=== PATIENT | male | born 1970 | race Caucasian/White ===

== ENCOUNTER 2017-07-17 16:41 | Emergency (ER) | payer BC ==
[2017-07-17] MEDS ORDERED: TETANUS & DIPHTHERIA TOX,ADULT 0.5 ML VIAL ONE (20:20)
--- NOTE | 2017-07-17 21:08 | EDPHYS ---
Physician Documentation [facility] Name: Michael Rahman Age: 47 yrs Sex: Male : 1970 Arrival Date: 07/17/2017 Time: 16:46 Bed Treatment Private MD: ED Physician David Linton HPI: 07/17 21:05 This 47 yrs old Male presents to ER via Ambulatory with complaints of Finger pm1 laceration. 21:05 The patient has a laceration occurred at home. The laceration(s) is(are) located on the pm1 dorsal aspect of middle phalanx of right middle finger. Onset: The symptoms/episode began/occurred just prior to arrival. Associated signs and symptoms: Pertinent negatives: deformity, numbness distal to injury, suspected foreign body. Patient was using a drill and it spun while he was holding it. When the drill spun it cut his right hand against a sharp piece of metal. Historical: - Allergies: 16:55 No Known Allergies; aj - Home Meds: 16:55 Lisinopril Oral [Active]; Pristiq oral oral [Active]; Hydrocodone-Acetaminophen Oral aj [Active]; - PMHx: 16:55 Hypertension; Arthritis; aj - PSHx: 16:55 Knee surgery; aj - Immunization history:: Adult Immunizations up to date. - Social history:: Smoking status: Patient/guardian denies using tobacco. - Ebola Screening: : No symptoms or risks identified at this time. ROS: 21:05 Constitutional: Negative for fever, chills, and weight loss, Eyes: Negative for injury, pm1 pain, redness, and discharge, ENT: Negative for injury, pain, and discharge, Neck: Negative for injury, pain, and swelling, Cardiovascular: Negative for chest pain, palpitations, and edema, Respiratory: Negative for shortness of breath, cough, wheezing, and pleuritic chest pain, Abdomen/GI: Negative for abdominal pain, nausea, vomiting, diarrhea, and constipation, Back: Negative for injury and pain. 21:05 Neuro: Negative for headache, weakness, numbness, tingling, and seizure. 21:05 MS/extremity: Positive for laceration, of the dorsal aspect of middle phalanx of right middle finger. 21:05 Skin: Positive for laceration(s). Exam: 21:05 Constitutional: This is a well developed, well nourished patient who is awake, alert, pm1 and in no acute distress. Head/Face: Normocephalic, atraumatic. Chest/axilla: Normal chest wall appearance and motion. Nontender with no deformity. No lesions are appreciated. Cardiovascular: Regular rate and rhythm with a normal S1 and S2. No gallops, murmurs, or rubs. Normal PMI, no JVD. No pulse deficits. Respiratory: Lungs have equal breath sounds bilaterally, clear to auscultation and percussion. No rales, rhonchi or wheezes noted. No increased work of breathing, no retractions or nasal flaring. Abdomen/GI: Soft, non-tender, with normal bowel sounds. No distension or tympany. No guarding or rebound. No evidence of tenderness throughout. Back: No spinal tenderness. No costovertebral tenderness. Full range of motion. 21:05 Musculoskeletal/extremity: Extremities: grossly normal except: noted in the dorsal aspect of middle phalanx of right middle finger: laceration, There is no evidence of decreased ROM, deformity, ROM: full active range of motion, in the right middle finger, the right middle finger Sensation intact. 21:05 Skin: injury, laceration(s), the wound is approximately 2 cm(s), with a depth of 0.5 cm(s), of the dorsal aspect of middle phalanx of right middle finger. 21:05 Neuro: Orientation: is normal, Motor: moves all fours, Sensation: is normal, no obvious gross deficits, Gait: is steady, at a normal pace, without difficulty. Vital Signs: 16:55 BP 129 / 81; Pulse 91; Resp 16; Temp 97.5; Pulse Ox 96% on R/A; Weight 92.99 kg; Height aj 5 ft. 11 in. (180.34 cm) (R); 19:30 BP 115 / 70; Pulse 84; Resp 15; Pulse Ox 100% on R/A; Pain 2/10; mt 21:49 BP 119 / 77; Pulse 84; Resp 16; Pulse Ox 96% on R/A; mt 16:55 Body Mass Index 28.59 (92.99 kg, 180.34 cm) aj Laceration: 21:05 Wound Repair of 2cm ( 0.8in ) subcutaneous laceration to dorsal aspect of middle pm1 phalanx of right middle finger. Linear shaped.. Distal neuro/vascular/tendon intact. Anesthesia: Digital block administered with 2 mls of 1% lidocaine. Wound prep: Extensive cleansing by me, Wound irrigation by me, Wound explored extensively, Copious irrigation. Skin closed with 9 5-0 Prolene using simple sutures and sterile technique. Dressed with Neosporin, 4x4's, finger splint. Patient tolerated well. MDM: 19:33 Patient medically screened. pm1 21:06 Data reviewed: vital signs. Data interpreted: Pulse oximetry: on room air is 100 %. pm1 Interpretation: normal. Counseling: I had a detailed discussion with the patient and/or guardian regarding: the historical points, exam findings, and any diagnostic results supporting the discharge/admit diagnosis, the need for outpatient follow up, to return to the emergency department if symptoms worsen or persist or if there are any questions or concerns that arise at home. 07/17 20:11 Order name: Prolene, Sutures; Complete Time: 20:18 pm1 07/17 20:11 Order name: Dressing - Wound; Complete Time: 20:18 pm1 07/17 20:11 Order name: Gloves, Sterile; Complete Time: 20:18 pm1 07/17 20:11 Order name: Setup Suture Tray; Complete Time: 20:18 pm1 07/17 21:15 Order name: Finger Splint; Complete Time: 21:43 pm1 Administered Medications: 20:25 Drug: Tetanus-Diphtheria Toxoid Adult 0.5 ml {System Analyst: [employer]. Exp: bb 10/24/2019. Lot #: [id number]. } Route: IM; Site: left deltoid; 21:43 Follow up: Response: No adverse reaction bb 20:35 Drug: Lidocaine (1 %) 5 ml {Note: adminstered by Latrell Portillo NP to affected area.} bb Volume: 5 ml; Route: Infiltration; Disposition: 07/18 04:05 Co-signature as Attending Physician, David Linton MD. Disposition: 07/17/17 21:07 Discharged to Home. Impression: Laceration without foreign body of right middle finger without damage to nail. - Condition is Stable. - Discharge Instructions: Laceration Care, Adult. - Prescriptions for Keflex 500 mg Oral Capsule - take 1 capsule by ORAL route every 12 hours for 10 days; 20 capsule. - Medication Reconciliation Form, Thank You Letter, Antibiotic Education form. - Follow up: Emergency Department; When: As needed; Reason: Worsening of condition. Follow up: Private Physician; When: 7 - 10 days; Reason: Recheck today's complaints, Continuance of care, Staple/Suture removal, Re-evaluation by your physician. Follow up: Rigo Mcfarlane MD; When: 7 - 10 days; Reason: Wound Recheck, Recheck today's complaints, Continuance of care, Staple/Suture removal, Re-evaluation by your physician. - Problem is new. - Symptoms have improved. Signatures: Mari Duckworth RN RN aj Richa Cerrato RN RN bb Jose D Francis, KALYANI DAIRY NUTRITION CONSULTANT pm1 David Linton MD MD gs Corrections: (The following items were deleted from the chart) 07/17 21:08 21:07 07/17/2017 21:07 Discharged to Home. Impression: Laceration without foreign body pm1 of right middle finger without damage to nail. Condition is Stable. Forms are Medication Reconciliation Form, Thank You Letter, Antibiotic Education, Prescription Opioid Use. Follow up: Emergency Department; When: As needed; Reason: Worsening of condition. Follow up: Private Physician; When: 7 - 10 days; Reason: Recheck today's complaints, Continuance of care, Staple/Suture removal, Re-evaluation by your physician. Problem is new. Symptoms have improved. pm1 22:25 21:08 07/17/2017 21:07 Discharged to Home. Impression: Laceration without foreign body bb of right middle finger without damage to nail. Condition is Stable. Discharge Instructions: Laceration Care, Adult. Prescriptions for Keflex 500 mg Oral Capsule - take 1 capsule by ORAL route every 12 hours for 10 days; 20 capsule. and Forms are Medication Reconciliation Form, Thank You Letter, Antibiotic Education. Follow up: Emergency Department; When: As needed; Reason: Worsening of condition. Follow up: Private Physician; When: 7 - 10 days; Reason: Recheck today's complaints, Continuance of care, Staple/Suture removal, Re-evaluation by your physician. Follow up: Rigo Mcfarlane; When: 7 - 10 days; Reason: Wound Recheck, Recheck today's complaints, Continuance of care, Staple/Suture removal, Re-evaluation by your physician. Problem is new. Symptoms have improved. pm1
--- NOTE | 2017-07-17 21:08 | ER ---
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 aj Transition of care: patient was not received from another setting of care. Onset of symptoms was July 17, 2017. Care prior to arrival: None. 16:54 Method Of Arrival: Ambulatory aj 16:54 Acuity: GENOVEVA 4 aj 20:00 Risk Assessment: Do you want to hurt yourself or someone else? Patient reports no bb desire to harm self or others. Initial Sepsis Screen: Does the patient meet any 2 criteria? No. Patient's initial sepsis screen is negative. Does the patient have a suspected source of infection? No. Patient's initial sepsis screen is negative. Triage Assessment: 16:55 General: Appears in no apparent distress. comfortable, Behavior is calm, cooperative, aj appropriate for age. Pain:. Neuro: Level of Consciousness is awake, alert, obeys commands, Oriented to person, place, time, situation, Appropriate for age. Respiratory: Airway is patent Respiratory effort is even, unlabored, Respiratory pattern is regular, symmetrical. Derm: Skin is intact, is healthy with good turgor, Skin is pink, warm \T\ dry. normal. Injury Description: Laceration sustained to dorsal aspect of middle phalanx of right middle finger is 0.5 to 2.5 cm long, was sustained 30-60 minutes ago. Historical: - Allergies: 16:55 No Known Allergies; aj - Home Meds: 16:55 Lisinopril Oral [Active]; Pristiq oral oral [Active]; Hydrocodone-Acetaminophen Oral aj [Active]; - PMHx: 16:55 Hypertension; Arthritis; aj - PSHx: 16:55 Knee surgery; aj - Immunization history:: Adult Immunizations up to date. - Social history:: Smoking status: Patient/guardian denies using tobacco. - Ebola Screening: : No symptoms or risks identified at this time. Screenin:00 Abuse screen: Denies threats or abuse. Nutritional screening: No deficits noted. bb Tuberculosis screening: No symptoms or risk factors identified. Fall Risk None identified. Assessment: 19:09 Reassessment: see triage. aj 20:00 Reassessment: Patient and/or family updated on plan of care and expected duration. Pain bb level reassessed. Patient is alert, oriented x 3, equal unlabored respirations, skin warm/dry/pink. small laceration to right hand not bleeding cleaned with soap and water covered with moist dressing. 22:22 Reassessment: sutures intact to right hand, finger splint in place pt verbalized bb understanding of and agrees to plan of care discharge instructions given pt ambulated with steady gait to exit accompanied by spouse. Vital Signs: 16:55 BP 129 / 81; Pulse 91; Resp 16; Temp 97.5; Pulse Ox 96% on R/A; Weight 92.99 kg; Height aj 5 ft. 11 in. (180.34 cm) (R); 19:30 BP 115 / 70; Pulse 84; Resp 15; Pulse Ox 100% on R/A; Pain 2/10; mt 21:49 BP 119 / 77; Pulse 84; Resp 16; Pulse Ox 96% on R/A; mt 16:55 Body Mass Index 28.59 (92.99 kg, 180.34 cm) aj ED Course: 16:46 Patient arrived in ED. mr 16:54 Triage completed. aj 16:55 Arm band placed on left wrist. Patient placed in waiting room, Patient notified of wait aj time. 19:33 Jose D Francis, RECREATION MANAGER is PHCP. pm1 19:33 David Linton MD is Attending Physician. pm1 20:00 Patient has correct armband on for positive identification. Call light in reach. Adult bb w/ patient. 20:18 Richa Cerrato, MARICRUZ is Primary Nurse. bb 21:08 Rigo Mcfarlane MD is Referral Physician. pm1 21:30 Assist provider with laceration repair on right hand using sutures. Set up tray. bb Performed by Jose D Francis RECREATION MANAGER Dressed with 4X4s, Patient tolerated well. Patient did not have IV access during this emergency room visit. Administered Medications: 20:25 Drug: Tetanus-Diphtheria Toxoid Adult 0.5 ml {Textile Screen Printer: [employer]. Exp: bb 10/24/2019. Lot #: [id number]. } Route: IM; Site: left deltoid; 21:43 Follow up: Response: No adverse reaction bb 20:35 Drug: Lidocaine (1 %) 5 ml {Note: adminstered by Latrell Portillo NP to affected area.} bb Volume: 5 ml; Route: Infiltration; Outcome: 21:07 Discharge ordered by . pm1 22:24 Discharged to home ambulatory, with family. bb 22:24 Condition: good 22:24 Discharge instructions given to patient, Instructed on discharge instructions, follow up and referral plans. medication usage, wound care, Demonstrated understanding of instructions, follow-up care, medications, wound care, Prescriptions given X 1. 22:25 Patient left the ED. bb Signatures: Mari Duckworth RN RN aj Rivera, Maria mr Ballard, Brenda, RN RN bb Jose D Francis NP RECREATION MANAGER pm1 Elba Quinones mt Corrections: (The following items were deleted from the chart) 19:32 19:30 BP 115 / 70; Pulse 84bpm; Resp 15bpm; Pulse Ox 100% RA; mt mt
[2017-07-17 22:40] VITALS: TEMP 97.5
[2017-07-17 22:42] VITALS: BP 119/77; O2SAT 96
== END 2017-07-17 22:25 | disposition home or self-care (01) ==
LOC: ER 16:41
PROC: 0JQJ0ZZ Repair Right Hand Subcutaneous Tissue and Fascia, Open Approach (ICD-10-PCS; principal; 2017-07-17)
DX: S61.212A Laceration without foreign body of right middle finger without damage to nail, initial encounter (principal); W29.8XXA Contact with other powered hand tools and household machinery, initial encounter; Y93.9 Activity, unspecified; Y92.9 Unspecified place or not applicable
CPT/HCPCS: 90714; 99283

== ENCOUNTER 2020-11-08 21:00 | Emergency (ER) | payer BC ==
[2020-11-08] MEDS ORDERED: BUPIVACAINE 0.5% PF 10 ML VIAL ONE (22:54)
[2020-11-08] MEDS ORDERED: LIDOCAINE 2% W/EPI 1:200,000 MPF 20 ML VIAL IM ONE (22:54)
[2020-11-08] MEDS ORDERED: FENTANYL CITR 100 MCG/2 ML ONE (23:14)
[2020-11-08] MEDS ORDERED: NA CHLORIDE 0.9% 500 ML ONE (23:14)
[2020-11-08] MEDS ORDERED: CLINDAMYCIN 900MG/D5W 900 MG/50 ML IVPB IV ONE (23:15)
[2020-11-08 23:32] LABS: Absolute Lymphocytes (CBC) 2.8 K/uL (0.7-4.9); Basophils % 0.7 % (0-1.3); Hematocrit 44.8 % (39.6-49.0); Lymphocytes % 24.5 % (15.3-44.8); MPV 8.9 fL (7.6-11.3)
[2020-11-08 23:47] LABS: Potassium 4.1 mmol/L (3.5-5.1)
--- NOTE | 2020-11-09 00:10 | EDPHYS ---
Physician Documentation [facility] Name: Michael Rahman Age: 50 yrs Sex: Male : 1970 Arrival Date: 11/08/2020 Time: 21:04 Bed 15 Private MD: ED Physician Bello Urias HPI: 11/08 22:35 This 50 yrs old Male presents to ER via Ambulatory with complaints of Abscess.cp 22:35 The patient presents with an abscess of the axilla of left arm. Description: cp erythematous, swollen. Onset: The symptoms/episode began/occurred last week. The patient has been recently seen at an urgent care, this week, for similar complaints, was given a prescription for antibiotics, currently taking Bactrim. Patient reports seen Friday at Urgent Care for abscess to axilla of left arm. Reports increasing pain and swelling to area. Historical: - Allergies: 21:47 No Known Allergies; wg - Home Meds: 21:47 Bactrim DS Oral [Active]; lisinopril Oral [Active]; Hydrocodone-Acetaminophen Oral wg [Active]; Pristiq Oral [Active]; Adderall XR Oral [Active]; - PMHx: 21:47 Hypertension; Arthritis; wg - Immunization history:: Adult Immunizations up to date. - Social history:: Smoking status: Patient denies any tobacco usage or history of. Patient uses alcohol, but reports only rare drinking. Patient/guardian denies using street drugs, IV drugs. ROS: 22:45 Skin: Positive for abscess, of the axilla of left arm. cp 22:45 Constitutional: Negative for body aches, chills, fever, poor PO intake. cp 22:45 Cardiovascular: Negative for chest pain. 22:45 Respiratory: Negative for cough, shortness of breath, wheezing. 22:45 All other systems are negative. Exam: 22:50 Constitutional: The patient appears in no acute distress, alert, awake, cp non-diaphoretic, non-toxic, well developed, well nourished. 22:50 Head/Face: Normocephalic, atraumatic. cp 22:50 Chest/axilla: Axilla: abscess, that is small, of the left axilla, with surrounding erythema, mild, tender fluctuant areas, lymphadenopathy, that is small, in the left axilla, with tenderness. 22:50 Cardiovascular: Rate: normal, Rhythm: regular. 22:50 Respiratory: the patient does not display signs of respiratory distress, Respirations: normal, no use of accessory muscles, no retractions. 22:50 Musculoskeletal/extremity: no streaking redness, no swelling extending from left arm axilla. 22:50 Neuro: Orientation: to person, place \T\ time. Mentation: is normal. Vital Signs: 21:41 BP 123 / 81; Pulse 80; Resp 18; Temp 98.5; Pulse Ox 99% on R/A; Weight 90.72 kg; Height wg 5 ft. 11 in. (180.34 cm); Pain 8/10; 22:43 BP 125 / 78; Pulse 78; Resp 18; Pulse Ox 99% on R/A; df1 11/09 00:06 BP 130 / 75; Pulse 77; Resp 18; Pulse Ox 100% on R/A; df1 11/08 21:41 Body Mass Index 27.89 (90.72 kg, 180.34 cm) Procedures: 00:05 I \T\ D: Incision and drainage was performed for an abscess of the left arm axilla cp Prepped with Betadine, Anesthetized with 8 ccs of 50/50 mixture 1% lidocaine with epi and 0.5% marcaine. Incised with #11 blade. Drained small amount purulent fluid. bloody fluid. Packed with iodoform gauze, Dressing: sterile 4x4 gauze, the patient tolerated the procedure well. MDM: 11/08 21:53 Patient medically screened. [facility] 23:00 Differential diagnosis: abscess, cellulitis, sepsis, lymphadenopathy. 11/09 00:09 Data reviewed: vital signs, nurses notes. 00:09 Counseling: I had a detailed discussion with the patient and/or guardian regarding: the historical points, exam findings, and any diagnostic results supporting the discharge/admit diagnosis, lab results, to return to the emergency department if symptoms worsen or persist or if there are any questions or concerns that arise at home. Response to treatment: the patient's symptoms have mildly improved after treatment, and as a result, I will discharge patient. ED course: VSS. Patient appears non-toxic and no acute distress. IV clindamycin given. Will discharge to home for continued monitoring. Patient instructed to continue oral Bactrim and start oral clindamycin. 11/08 22:30 Order name: CBC with Diff cp 11/08 22:30 Order name: BMP cp 11/08 22:30 Order name: CBC with Automated Diff EDMS 11/08 22:30 Order name: Basic Metabolic Panel EDMS 11/08 22:30 Order name: IV; Complete Time: 23:21 cp 11/08 22:30 Order name: I\T\D Setup; Complete Time: 22:46 cp Administered Medications: 11/08 23:20 Drug: fentaNYL (PF) 25 mcg Route: IVP; Site: right antecubital; df1 11/09 00:21 Follow up: Response: No adverse reaction; Pain is decreased df1 11/08 23:20 Drug: NS 0.9% 500 ml Route: IV; Rate: bolus; Site: right antecubital; df1 11/09 00:21 Follow up: IV Intake: 500ml df1 11/08 23:21 Drug: Clindamycin 900 mg Route: IVPB; Infused Over: 30 mins; Site: right antecubital; df1 11/09 00:22 Follow up: IV Intake: 50ml df1 Disposition: 00:15 Chart complete. cp Disposition Summary: 11/09/20 00:09 Discharge Ordered Location: Home cp Problem: new cp Symptoms: have improved cp Condition: Stable cp Diagnosis - Cutaneous abscess of left axilla - left arm cp Followup: cp - With: Private Physician - When: 1 - 2 days - Reason: Recheck today's complaints Discharge Instructions: - Discharge Summary Sheet cp - Skin Abscess cp - Incision and Drainage cp Forms: - Medication Reconciliation Form cp - Thank You Letter cp - Antibiotic Education cp - Prescription Opioid Use cp Prescriptions: - Clindamycin HCl 300 mg Oral Capsule - take 1 capsule by ORAL route every 6 hours for 10 days; 40 capsule; Refills: 0, cp Product Selection Permitted Addendum: 11/10/2020 05:17 Co-signature as Attending Physician, Bello Urias MD I agree with the assessment and c sepulveda plan of care. Signatures: Dispatcher [employer] Bello Jennings MD MD cha Page, Corey, PA PA cp Flavio Mcgovern, RN Misty Hoyt df1
--- NOTE | 2020-11-09 00:10 | ER ---
Nurse's Notes [facility] Name: Michael Rahman Age: 50 yrs Sex: Male : 1970 Arrival Date: 11/08/2020 Time: 21:04 Bed 15 Private MD: Diagnosis: Cutaneous abscess of left axilla-left arm Presentation: 11/08 21:41 Chief complaint: Patient states: PT states he was seen at urgent care on Friday for an wg abscess under his left arm and was prescribed bactrim. Pt states the abscess has gotten bigger, more painful and is concerned. Pt states he feels slightly nausead but thinks its related to the pain. Coronavirus screen: Vaccine status: Patient reports receiving the 2nd dose of the covid vaccine. Date June 01, 2020 At this time, the client does not indicate any symptoms associated with coronavirus-19. Ebola Screen: Patient negative for fever greater than or equal to 101.5 degrees Fahrenheit, and additional compatible Ebola Virus Disease symptoms Patient denies exposure to infectious person. Patient denies travel to an Ebola-affected area in the 21 days before illness onset. Initial Sepsis Screen: Does the patient meet any 2 criteria? No. Patient's initial sepsis screen is negative. Does the patient have a suspected source of infection? No. Patient's initial sepsis screen is negative. Risk Assessment: Do you want to hurt yourself or someone else? Patient reports no desire to harm self or others. Onset of symptoms was November 08, 2020 at 12:00. Care prior to arrival: Bactrim. 21:41 Method Of Arrival: Ambulatory 21:41 Acuity: GENOVEVA 4 wg 11/09 00:19 Note Non-adherant dressing applied. Pt states pain 0/10. Up ambulating with steady gait df1 to restroom. Triage Assessment: 11/08 21:49 General: Appears uncomfortable, well groomed, Behavior is calm, cooperative, wg appropriate for age, anxious. Pain: Complains of pain in under left armpit Pain does not radiate. Pain currently is 8 out of 10 on a pain scale. Quality of pain is described as burning, Pain began 2-3 days ago. EENT: No deficits noted. Neuro: No deficits noted. Cardiovascular: No deficits noted. Respiratory: No deficits noted. GI: No deficits noted. : No deficits noted. Derm: Abscess located on under left armpit is quarter sized, has no drainage, is red, is raised. Musculoskeletal: No deficits noted. Historical: - Allergies: 21:47 No Known Allergies; wg - Home Meds: 21:47 Bactrim DS Oral [Active]; lisinopril Oral [Active]; Hydrocodone-Acetaminophen Oral wg [Active]; Pristiq Oral [Active]; Adderall XR Oral [Active]; - PMHx: 21:47 Hypertension; Arthritis; wg - Immunization history:: Adult Immunizations up to date. - Social history:: Smoking status: Patient denies any tobacco usage or history of. Patient uses alcohol, but reports only rare drinking. Patient/guardian denies using street drugs, IV drugs. Screenin:41 Abuse screen: Denies threats or abuse. Nutritional screening: No deficits noted. df1 Tuberculosis screening: No symptoms or risk factors identified. Fall Risk None identified. Assessment: 22:41 General: Appears in no apparent distress. Behavior is calm, cooperative. Pain: df1 Complains of pain in left arm Pain does not radiate. Pain currently is 7 out of 10 on a pain scale. Aggravated by increased activity. Neuro: No deficits noted. Cardiovascular: No deficits noted. Respiratory: No deficits noted. GI: No deficits noted. : No deficits noted. EENT: No deficits noted. Derm: No deficits noted. Musculoskeletal: No deficits noted. Vital Signs: 21:41 BP 123 / 81; Pulse 80; Resp 18; Temp 98.5; Pulse Ox 99% on R/A; Weight 90.72 kg; Height 5 ft. 11 in. (180.34 cm); Pain 8/10; 22:43 BP 125 / 78; Pulse 78; Resp 18; Pulse Ox 99% on R/A; df1 11/09 00:06 BP 130 / 75; Pulse 77; Resp 18; Pulse Ox 100% on R/A; df1 11/08 21:41 Body Mass Index 27.89 (90.72 kg, 180.34 cm) ED Course: 11/08 21:04 Patient arrived in ED. wm 21:37 Bello Marcelino PA is PHCP. cp 21:37 Bello Urias MD is Attending Physician. cp 21:47 Triage completed. wg 21:52 Arm band placed on right wrist. wg 22:13 Carmelita Martin, RN is Primary Nurse. ch4 22:41 Patient has correct armband on for positive identification. Placed in gown. Bed in low df1 position. Call light in reach. 23:21 BMP Sent. df1 23:21 CBC with Diff Sent. df1 23:21 Inserted saline lock: 20 gauge in right antecubital area, using aseptic technique. df1 11/09 00:35 Assist provider with I \T\ D: of an abscess on left axilla. IV discontinued, intact. df1 Administered Medications: 11/08 23:20 Drug: fentaNYL (PF) 25 mcg Route: IVP; Site: right antecubital; df1 11/09 00:21 Follow up: Response: No adverse reaction; Pain is decreased df1 11/08 23:20 Drug: NS 0.9% 500 ml Route: IV; Rate: bolus; Site: right antecubital; df1 11/09 00:21 Follow up: IV Intake: 500ml df1 11/08 23:21 Drug: Clindamycin 900 mg Route: IVPB; Infused Over: 30 mins; Site: right antecubital; df1 11/09 00:22 Follow up: IV Intake: 50ml df1 Intake: 00:21 IV: 500ml; Total: 500ml. df1 00:22 IV: 50ml; Total: 550ml. df1 Outcome: 00:09 Discharge ordered by . cp 00:35 Discharged to home ambulatory. df1 00:35 Condition: good 00:35 Discharge instructions given to patient, family, Instructed on discharge instructions, follow up and referral plans. medication usage, Demonstrated understanding of instructions, follow-up care, medications, wound care, Prescriptions given X 1. 00:36 Patient left the ED. df1 Signatures: Bello Marcelino PA PA cp Marsh, Wendy Carmelita Martin, MARICRUZ RN Flavio Red RN wg Furlich, Dawn df1
[2020-11-09 00:47] VITALS: TEMP 98.5
[2020-11-09 00:49] VITALS: BP 130/75; O2SAT 100
== END 2020-11-09 00:36 | disposition home or self-care (01) ==
LOC: ER 21:00
PROC: 0J9F0ZZ Drainage of Left Upper Arm Subcutaneous Tissue and Fascia, Open Approach (ICD-10-PCS; principal; 2020-11-09)
DX: L02.412 Cutaneous abscess of left axilla (principal); I10 Essential (primary) hypertension
CPT/HCPCS: 85025; 80048; 36415; 96375; 96374; 99284; 10060; J3010; J7040

== ENCOUNTER 2023-02-21 08:06 | Day surgery (SDC) | payer BC ==
[2023-02-20 12:05] LABS: Potassium 4.1 mEq/L (3.5-5.1)
[2023-02-21] MEDS ORDERED: Ringers Lactate 1,000 ML IV ONE (08:16)
[2023-02-21] MEDS ORDERED: propofoL 200 MG/20 ML VIAL IV ONE ×3 (10:23→11:05)
[2023-02-21] MEDS ORDERED: LIDOCAINE 1% MPF 5 ML VIAL ONE (10:24)
[2023-02-21 11:35] VITALS: TEMP 97.9; O2SAT 100
[2023-02-21 11:56] VITALS: BP 122/76
--- NOTE | 2023-02-21 15:31 | EKG ---
Test Date: 2023-02-20 Test Time: 12:14:03 Lime Trimmer: PAULINA MEASUREMENT RESULTS: Intervals: Rate: 71 IA: 158 QRSD: 94 QT: 364 QTc: 395 [place]: P: 73 IA: 158 QRS: 64 T: 75 INTERPRETIVE STATEMENTS: Sinus rhythm with occasional premature ventricular complexes Otherwise normal ECG No previous ECG available for comparison Electronically Signed On 02-21-23 15:27:50 GLOBAL PROJECT MANAGER by Cuauhtemoc Brown
== END 2023-02-21 11:54 | disposition home or self-care (01) ==
LOC: OR 08:06
PROVIDERS: ATTEND Surgery
PROC: 0DJD8ZZ Inspection of Lower Intestinal Tract, Via Natural or Artificial Opening Endoscopic (ICD-10-PCS; principal; 2023-02-21 09:45)
DX: Z12.11 Encounter for screening for malignant neoplasm of colon (principal); K64.8 Other hemorrhoids; K64.4 Residual hemorrhoidal skin tags
CPT/HCPCS: 93005; 80048; 36415; 45378; J2704 ×2; J2001; J7120

== ENCOUNTER 2024-02-28 19:26 | Emergency (ER) | payer BC ==
--- NOTE | 2024-02-28 19:49 | ER ---
Nurse's Notes [facility] Name: Michael Rahman Age: 54 yrs Sex: Male : 1970 Arrival Date: 02/28/2024 Time: 19:26 Bed 6 Private MD: Diagnosis: Dental abscess;Fractured tooth Presentation: 02/27 19:43 Chief complaint: Patient states: I have had a toothache for 3 days that is causing me a bm8 bad headache . Coronavirus screen: Vaccine status: Patient reports receiving the 2nd dose of the covid vaccine. Ebola Screen: Patient negative for fever greater than or equal to 101.5 degrees Fahrenheit, and additional compatible Ebola Virus Disease symptoms Patient denies exposure to infectious person. Patient denies travel to an Ebola-affected area in the 21 days before illness onset. No symptoms or risks identified at this time. Initial Sepsis Screen: Does the patient meet any 2 criteria? No. Patient's initial sepsis screen is negative. Does the patient have a suspected source of infection? No. Patient's initial sepsis screen is negative. Risk Assessment: Do you want to hurt yourself or someone else? Patient reports no desire to harm self or others. Onset of symptoms was February 25, 2024. 19:43 Method Of Arrival: Ambulatory bm8 19:43 Acuity: GENOVEVA 4 bm8 Triage Assessment: 19:46 General: Appears in no apparent distress. uncomfortable, Behavior is calm, cooperative, bm8 appropriate for age. Pain: Complains of pain in mouth and right jaw head Pain currently is 7 out of 10 on a pain scale. Pain began 2-3 days ago. EENT: Oral mucosa is moist. Good dentition noted. Dental caries noted in lower right third molar (#32) Reports pain in mouth and right jaw Pain is 7 out of 10 on a pain scale. Neuro: No deficits noted. Level of Consciousness is awake, alert, obeys commands, Oriented to person, place, time, situation, Appropriate for age Reports headache in right parietal area, frontal area. Cardiovascular: Denies chest pain, Capillary refill < 3 seconds in bilateral fingers. Respiratory: Airway is patent Trachea midline Respiratory effort is even, unlabored, Respiratory pattern is regular, symmetrical. GI: No signs and/or symptoms were reported involving the gastrointestinal system. : No signs and/or symptoms were reported regarding the genitourinary system. Derm: No signs and/or symptoms reported regarding the dermatologic system. Musculoskeletal: No signs and/or symptoms reported regarding the musculoskeletal system. Historical: - Allergies: 19:45 No Known Allergies; bm8 - Home Meds: 19:45 Hydrocodone-Acetaminophen Oral [Active]; lisinopril 20 mg oral tablet 1 tab daily for bm8 hypertension [Active]; - PMHx: 19:45 Arthritis; Hypertension; degenerative disc disease (Hypertension); bm8 - PSHx: 19:46 Unable to Obtain; bm8 - Immunization history:: Adult Immunizations up to date. - Infectious Disease History:: Denies. - Social history:: Smoking status: Patient denies any tobacco usage or history of. Screenin:49 [facility] ED Fall Risk Assessment (Adult) History of falling in the last 3 months, bm8 including since admission No falls in past 3 months (0 pts) Confusion or Disorientation No (0 pts) Intoxicated or Sedated No (0 pts) Impaired Gait No (0 pts) Mobility Assist Device Used No (0 pt) Altered Elimination No (0 pt) Score/Fall Risk Level 0 - 2 = Low Risk Oriented to surroundings, Maintained a safe environment, Educated pt \T\ family on fall prevention, incl call for assistance when getting out of bed, Assessed \T\ reinforced patient's understanding of fall precautions, Hourly rounding (assess needs \T\ fall precautionary measures) done, Used ambulatory aids as needed (educated on \T\ assisted with), Used gait belt as appropriate. Abuse screen: Denies threats or abuse. Nutritional screening: No deficits noted. Tuberculosis screening: No symptoms or risk factors identified. Assessment: 19:49 Reassessment: see triage assessment. bm8 Vital Signs: 19:43 BP 141 / 83; Pulse 80; Resp 18; Temp 98.2; Pulse Ox 97% ; Weight 90.72 kg; Height 5 ft. bm8 11 in. ; Pain 7/10; 20:03 BP 138 / 88; Pulse 75; Resp 18; Temp 98.2; Pulse Ox 96% ; Pain 7/10; bm8 19:43 Body Mass Index 27.89 (90.72 kg, 180.34 cm) bm8 19:43 Pain Scale: Adult bm8 20:03 Pain Scale: Adult bm8 [place] Coma Score: 19:49 Eye Response: spontaneous(4). Motor Response: obeys commands(6). Verbal Response: bm8 oriented(5). Total: 15. 20:03 Eye Response: spontaneous(4). Motor Response: obeys commands(6). Verbal Response: bm8 oriented(5). Total: 15. ED Course: 19:29 Patient arrived in ED. j6 19:31 Monet Mercado FNP is [facility]. [facility] 19:31 Saji Bill MD is Attending Physician. [facility] 19:43 All Enriquez, RN is Primary Nurse. bm8 19:45 Triage completed. bm8 19:46 Arm band placed on right wrist. bm8 19:49 Patient has correct armband on for positive identification. Placed in gown. Bed in low bm8 position. Call light in reach. Client placed on continuous cardiac and pulse oximetry monitoring. NIBP monitoring applied. Pulse ox on. NIBP on. Door closed. Noise minimized. Pillow given. Verbal reassurance given. Head of bed elevated. 19:49 No provider procedures requiring assistance completed. Patient did not have IV access bm8 during this emergency room visit. 20:02 Provided Education on: post er care. bm8 Administered Medications: 19:50 Drug: Ketorolac IM 60 mg IM once Route: IM; Site: right deltoid; bm8 20:02 Follow up: Response: No adverse reaction bm8 Medication: 19:49 VIS not applicable for this client. bm8 Outcome: 19:48 Discharge ordered by . [facility] 20:02 Discharged to home ambulatory, bm8 20:02 Condition: stable 20:02 Discharge instructions given to patient, Instructed on discharge instructions, follow up and referral plans. no drinking with medication, no driving heavy equipment, medication usage, safety practices, Demonstrated understanding of instructions, follow-up care, medications, Prescriptions given X 2, 20:03 Patient left the ED. bm8 Signatures: Monet OdellMonet Maradiaga FNP FNP [facility] All Enriquez, RN RN bm8
--- NOTE | 2024-02-28 19:49 | EDPHYS ---
Physician Documentation [facility] Name: Michael Rahman Age: 54 yrs Sex: Male : 1970 Arrival Date: 02/28/2024 Time: 19:26 Bed 6 Private MD: ED Physician Saji Bill HPI: 02/27 19:45 This 54 yrs old Male presents to ER via Ambulatory with complaints of Toothache, Facial jh7 Swelling, Headache, Fever. 19:45 54-year-old male with a past medical history of hypertension presents to the ER for jh7 right sided toothache, headache, and sinus pressure worsening over the past week. The patient reports that he is attempting to schedule to have his right lower molar removed since the tooth broke a few months back. Denies facial swelling, but reports low-grade fever since yesterday.. Historical: - Allergies: 19:45 No Known Allergies; bm8 - Home Meds: 19:45 Hydrocodone-Acetaminophen Oral [Active]; lisinopril 20 mg oral tablet 1 tab daily for bm8 hypertension [Active]; - PMHx: 19:45 Arthritis; Hypertension; degenerative disc disease (Hypertension); bm8 - PSHx: 19:46 Unable to Obtain; bm8 - Immunization history:: Adult Immunizations up to date. - Infectious Disease History:: Denies. - Social history:: Smoking status: Patient denies any tobacco usage or history of. ROS: 19:45 Constitutional: Per HPI jh7 Exam: 19:45 Constitutional: This is a well developed, well nourished patient who is awake, alert, jh7 and in no acute distress. Neck: Trachea midline, no thyromegaly or masses palpated, and no cervical lymphadenopathy. Supple, full range of motion without nuchal rigidity, or vertebral point tenderness. No Meningismus. Cardiovascular: Regular rate and rhythm with a normal S1 and S2. No gallops, murmurs, or rubs. Normal PMI, no JVD. No pulse deficits. Respiratory: Lungs have equal breath sounds bilaterally, clear to auscultation and percussion. No rales, rhonchi or wheezes noted. No increased work of breathing, no retractions or nasal flaring. Abdomen/GI: Soft, non-tender, with normal bowel sounds. No distension or tympany. No guarding or rebound. No evidence of tenderness throughout. Back: No spinal tenderness. No costovertebral tenderness. Full range of motion. Skin: Warm, dry with normal turgor. Normal color with no rashes, no lesions, and no evidence of cellulitis. MS/ Extremity: Pulses equal, no cyanosis. Neurovascular intact. Full, normal range of motion. Neuro: Awake and alert, GCS 15, oriented to person, place, time, and situation. Motor strength 5/5 in all extremities. Sensory grossly intact. Normal gait. 19:45 ENT: Dental exam: abscess, that is mild, specifically in the lower right third molar (#32), fractured teeth are noted, specifically the lower right third molar (#32), gum swelling, that is mild, specifically in the lower right third molar (#32), Vital Signs: 19:43 BP 141 / 83; Pulse 80; Resp 18; Temp 98.2; Pulse Ox 97% ; Weight 90.72 kg; Height 5 ft. bm8 11 in. ; Pain 7/10; 20:03 BP 138 / 88; Pulse 75; Resp 18; Temp 98.2; Pulse Ox 96% ; Pain 7/10; bm8 19:43 Body Mass Index 27.89 (90.72 kg, 180.34 cm) bm8 19:43 Pain Scale: Adult bm8 20:03 Pain Scale: Adult bm8 [place] Coma Score: 19:49 Eye Response: spontaneous(4). Motor Response: obeys commands(6). Verbal Response: bm8 oriented(5). Total: 15. 20:03 Eye Response: spontaneous(4). Motor Response: obeys commands(6). Verbal Response: bm8 oriented(5). Total: 15. MDM: 19:31 Medical Screening Exam initiated [facility] 20:00 Differential diagnosis: dental caries, gingivitis, dental abscess. Data reviewed: vital [facility] signs, nurses notes. I considered the following discharge prescriptions or medication management in the emergency department Medications were administered in the Emergency Department. See MAR. Care significantly affected by the following chronic conditions: Hypertension. Counseling: I had a detailed discussion with the patient and/or guardian regarding the historical points, exam findings, and any diagnostic results supporting the discharge/admit diagnosis, the need for outpatient follow up, dentist. Response to treatment: the patient's symptoms have mildly improved after treatment. Administered Medications: 19:50 Drug: Ketorolac IM 60 mg IM once Route: IM; Site: right deltoid; bm8 20:02 Follow up: Response: No adverse reaction bm8 Disposition: 02/28 00:27 Co-signature as Attending Physician, Saji Bill MD I agree with the assessment sp4 and plan of care. I reviewed the patient's care provided by the Advanced Practice Provider and agree with the diagnosis and treatment plan. Disposition Summary: 02/28/24 19:48 Discharge Ordered Notes: Location: Home [facility] Problem: an ongoing problem [facility] Symptoms: have worsened [facility] Condition: Stable [facility] Diagnosis - Dental abscess 7 - Fractured tooth 7 Followup: [facility] - With: Private Physician - When: 2 - 3 days - Reason: Recheck today's complaints Discharge Instructions: - Discharge Summary Sheet [facility] - Dental Abscess [facility] Forms: - Medication Reconciliation Form [facility] - Antibiotic Education [facility] - Prescription Opioid Use [facility] - Patient Portal Instructions [facility] - Leadership Thank You Letter [facility] Prescriptions: - Augmentin 875-125 mg Oral Tablet - take 1 tablet ORAL route every 12 hours for 10 days; 20 tablet; Refills: 0, [facility] Product Selection Permitted - Tramadol 50 mg Oral Tablet - take 1 tablet ORAL route every 8 hours as needed; 12 tablet; Refills: 0, [facility] Product Selection Permitted Signatures: Monet Mercado, PROCESS TRAINER PROCESS TRAINER 7 Saji Bill MD MD sp4 All Enriquez RN RN bm8
[2024-02-28] MEDS ORDERED: KETOROLAC 30 MG/ML INJ ONE (19:51)
[2024-02-28 20:08] VITALS: TEMP 98.2
[2024-02-28 20:09] VITALS: BP 138/88; O2SAT 96
== END 2024-02-28 20:03 | disposition home or self-care (01) ==
LOC: ER 19:26
DX: K04.7 Periapical abscess without sinus (principal); S02.5XXA Fracture of tooth (traumatic), initial encounter for closed fracture
CPT/HCPCS: 96372; 99284